=== PATIENT | male | born 1970 | race Caucasian/White ===

== ENCOUNTER 2016-12-28 17:15 | Emergency (ER) | payer SELFPAY ==
[~2016-12-28] VITALS: Ht 167.6 cm; Wt 70.5 kg
[~2016-12-28 17:15] MED LIST: NOCURR
[2016-12-28 21:06] VITALS: BP 128/78
== END 2016-12-28 21:07 | disposition home or self-care (01) ==
LOC: EMS 17:22
DX: M25.562 Pain in left knee (principal); R03.0 Elevated blood-pressure reading, without diagnosis of hypertension
CPT/HCPCS: 29505; 99284